=== PATIENT | male | born 1985 | race Caucasian/White ===

== ENCOUNTER 2021-02-17 16:09 | Emergency (ER) | payer OTHER, SELFPAY ==
[2021-02-17 16:15] VITALS: BP 130/80; PULSE 99; RESP 18; TEMP 37.1; O2SAT 100
--- NOTE | 2021-02-17 16:15 | ED.EXTPRO ---
HPI - Extremity Problem General Chief complaint: Skin/Abscess/Foreign Body Stated complaint: Knot on the back of left Leg Time Seen by Provider: 02/17/21 16:15 Source: patient and RN notes reviewed Mode of arrival: ambulatory Limitations: no limitations History of Present Illness HPI Narrative: 35-year-old male presents with concern for a painful bump on the back of his left leg. Reports it has been there for more than a month, started off small and has gotten bigger, more painful, more tender. Denies any drainage. Denies any fever, general malaise, body aches. MD Complaint: other (Abscess) Related Data Allergies Allergy/AdvReac Type Severity Reaction Status Date / Time No Known Allergies Allergy Verified 02/17/21 16:27 Review of Systems Review of Systems: CONSTITUTIONAL: Denies malaise, chills, sweats, or fever. SKIN: Reports painful, red bump on the back of his left leg MUSCULOSKELETAL: Denies musculoskeletal pain or myalgia. All systems reviewed & are unremarkable except as noted in HPI and below PMFSH Past Medical History Medical History ADHD, predominantly inattentive type Long-term current use of drug therapy for attention deficit hyperactivity disorder (ADHD) Mixed hyperlipidemia Prediabetes Surgical History Surgical History No history of previous surgery Family History Family History Father Diabetes mellitus Mother Diabetes mellitus Social History Social History Smoking packs per day: 0.5 Smoking cigarettes per day: 10.0 Years smoked: 20 Smoking pack-years: 10.00 Smoking status: Current every day smoker Tobacco type: cigarettes Second hand tobacco smoke exposure: No Alcohol intake: never Substance use: never 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 There is no relevant family history pertinent to the presenting complaint Exam Narrative: GENERAL: Well-appearing, well-nourished, and in no acute distress. HEAD: Normocephalic, atraumatic. EYES: PERRLA, conjunctivae clear, and EOMI. ENT: Mucous membranes moist. NECK: Supple. No lymphadenopathy CHEST: Clear to auscultation. No respiratory distress. HEART: Regular rate and rhythm. SKIN: Warm, dry. 3 cm raised erythematous fluctuant area noted to the back of the left thigh surrounded by 12cm of erythema and mild induration. NEURO: Alert and oriented x3. PSYCH: Normal mood and affect Course Course Emergency Course: Patient is aware of diagnosis, understands and agrees to treatment plan. Anticipatory guidance given. Patient agrees to follow-up as directed and is aware of reasons to seek care at the emergency department. Portions of this record may have been created with voice recognition software Vital Signs Vital signs: Reviewed. Pt has been instructed to follow up with his primary care provider within the next week regarding his elevated blood pressure today. Procedures Abscess I/D lower extremity: Date of Incision: 02/17/21 Time of Incision: 16:37 Side (if applicable): left Local Anesthetic: lidocaine 1% Technique: incised with #11 blade Amount of fluid expressed (mL): 6 Irrigation: Yes Packing used?: none I&D Results: Pus MDM - Extremity (Nontraumatic) MDM Narrative Medical decision making narrative: Verbal consent was obtained. The indication for the procedure was clinical suspicion for an abscess. The region was anesthetized with 1% lidocaine. The most fluctuant portion of the abscess was incised with an 11 blade scalpel. The abscess cavity of explored and evacuat
== END 2021-02-17 17:05 | disposition home or self-care (01) ==
PROVIDERS: Emergency Provider Nurse Practitioner
DX: L02.416 Cutaneous abscess of left lower limb (principal); F17.210 Nicotine dependence, cigarettes, uncomplicated; F90.9 Attention-deficit hyperactivity disorder, unspecified type; E78.2 Mixed hyperlipidemia; R73.03 Prediabetes
CPT/HCPCS: 10060; 87070; 87205; 99213; G0463

== ENCOUNTER 2022-02-27 09:40 | Emergency (ER) | payer OTHER, SELFPAY ==
--- NOTE | ~2022-02-27 | XR_ITS ---
EXAMINATION: XR chest 2V DATE: 02/27/2022 10:10 INDICATION: Tachycardia TECHNIQUE: PA and lateral views of the chest are obtained. COMPARISON: None available FINDINGS: The lungs are free of acute opacities. No pleural effusion or pneumothorax. The cardiomedia stinal silhouette is normal. The visualized bones and soft tissues are unremarkable. IMPRESSION: 1. No acute cardiopulmonary abnormality. Reviewed, dictated and finalized at location A.
--- NOTE | 2022-02-27 09:42 | ECG_ITS ---
Measurements Intervals [place] Rate: 111 P: 48 LA: 178 QRS: -37 QRSD: 97 T: 61 QT: 324 QTc: 442 Interpretive Statements SINUS TACHYCARDIA MARKED LEFT AXIS DEVIATION [QRS AXIS < -30] POSSIBLE RIGHT VENTRICULAR CONDUCTION DELAY [RSR (QR) IN V1/V2] ABNORMAL ECG NO PREVIOUS ECG AVAILABLE FOR COMPARISON Electronically Signed On 02-27-2022 12:07:32 CDT by Jose Evans M.D.
--- NOTE | 2022-02-27 09:42 | PC.NURSE ---
c/o high heart rate and light headed. this rn offered a wheelchair, pt refused. ambulatory with steady gait to ed room 9.
[2022-02-27 09:43] VITALS: BP 165/83; PULSE 113; RESP 22; TEMP 36.7; O2SAT 100
--- NOTE | 2022-02-27 09:43 | ED.ARRPALP ---
HPI - Arrhythmia/Palpitations General Chief Complaint: Arrhythmia/Palpitations Stated Complaint: high heart rate, light headed Time Seen by Provider: 02/27/22 09:42 History of Present Illness HPI narrative: 36-year-old male presents the emergency room for evaluation of tachycardia. Patient states that he was looking on his apple watch is that his heart rate was over 100. Patient is also complaining of intermittent chest pain and shortness of breath. Patient notes that he is a smoker. Denies any radiating chest pain. Denies any syncope or presyncopal events. Denies any nausea or vomiting. Patient denies any palpitations or edema. Patient does note that in the last couple visits to his doctor's office, his heart rate was elevated. Related Data Allergies Allergy/AdvReac Type Severity Reaction Status Date / Time No Known Allergies Allergy Verified 02/27/22 09:51 Review of Systems Review of Systems: CONSTITUTIONAL: Denies fever, chills, or sweats. EYES: Denies visual changes, redness, or discharge. ENT: Denies rhinorrhea, congestion, sore throat, or otalgia. CARDIOVASCULAR: Reports elevated heart rate, and chest pain RESPIRATORY: Reports shortness of breath GASTROINTESTINAL: Denies abdominal pain, nausea, vomiting, or diarrhea. GENITOURINARY: Denies dysuria or hematuria. SKIN: Denies rash or itching. MUSCULOSKELETAL: Denies back pain, joint pain, or myalgia. NEUROLOGIC: Denies headache, numbness, dizziness, or weakness. PSYCHIATRIC: Denies anxiety or depression. 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 HEAD: Normocephalic, atraumatic. EYES: Conjunctivae normal, PERRLA and EOMI. ENT: External nose normal, Nares clear, no rhinorrhea or epistaxis. Mucous membranes moist. Oropharynx without tonsillar hypertrophy exudate or other lesions. External ears normal, bilateral TMs normal bilaterally NECK: Supple. No meningeal signs. No adenopathy or masses. No carotid bruits or JVD CHEST: Clear to auscultation. No respiratory distress. No wheezes rales or rhonchi. No tenderness. HEART: Tachycardic and regular rhythm. No murmur heard. Normal peripheral pulses. ABDOMEN: Soft, nontender, nondistended, normal active bowel sounds. EXTREMITIES: Normal range of motion. No edema. No clubbing or cyanosis SKIN: Warm, dry, no rash. No noted wounds NEURO: No focal deficits. Alert and oriented x3. MAEW. CN's II-XI intact bilaterally, normal gait PSYCH: Cooperative. Normal mood and affect. MDM - Arrhythmia/Palpitations ECG Data EKG #1: ECG completion date: 02/27/22 ECG completion time: 09:55 EKG Interpretation: tachycardia, sinus rhythm, no ectopy, ST depression, normal QT and left axis Discharge Plan Discharge Clinical Impression: Tachycardia, TSH elevation Patient Disposition: Home, Self-Care Condition: Stable Instructio
[2022-02-27 09:58] LABS: Basophils Percent Auto 0.4 % (0.2-1.2); Eosinophils Absolute Auto 0.1 K/mm3 (0-0.3); Eosinophils Percent Auto 1.7 % (0-4.4); Hematocrit 45.2 % (42.0-52.0); Hemoglobin 14.7 g/dL (14.0-18.0); Immature Granulocyte Absolute 0.01 K/mm3 (0.00-0.031); Immature Granulocyte Percent A 0.1 % (0-0.5); Lymphocytes Absolute Auto 2.88 K/mm3 (0.9-3.2); Lymphocytes Percent Auto 38.8 % (18.3-44.2); Mean Corpuscular HGB Conc 32.5 g/dl (32-36); Mean Corpuscular Hemoglobin 29.7 pg (26-34); Mean Corpuscular Volume 91.3 fl (80-100); Mean Platelet Volume 10.1 fl (7.4-10.4); Monocytes Absolute Auto 0.8 K/mm3 (0.1-0.6); Monocytes Percent Auto 10.6 % (2.6-8.5); Neutrophils Absolute Auto 3.6 K/mm3 (1.3-6.7); Neutrophils Percent Auto 48.4 % (45.5-73.1); Platelet Count Result 313 k/mm3 (150-375); Red Blood Count 4.95 M/mm3 (4.6-6.20); Red Cell Distribution Width 11.5 % (11.5-14.5); White Blood Count 7.4 K/mm3 (4.5-10.0)
[2022-02-27] MEDS: SODIUM CHLORIDE 0.9% IV 1,000 ML 999 ML IV CONT (10:01)
[2022-02-27] MEDS: ASPIRIN 81 MG CHEWABLE TABLET 324 MG PO (10:01)
--- NOTE | 2022-02-27 10:08 | PC.NURSE ---
Pt to xray via transport at this time.
[2022-02-27 10:10] LABS: Alanine Aminotransferase 60 U/L (6-50); Albumin Level 4.1 g/dL (3.5-5.1); Alkaline Phosphatase 105 U/L (38-126); Anion Gap 9 mmol/L (8-16); Aspartate Amino Transferase 52 U/L (17-59); Bilirubin,Total 0.4 mg/dL (0.2-1.3); Blood Urea Nitrogen 10 mg/dL (9-20); Carbon Dioxide 24 mmol/L (22-30); Chloride 103 mmol/L (98-107); Estimated CRCL calculation 157 ml/min; Estimated Glomerular Filt Rate > 60; Glucose 121 mg/dL (65-110); Lipase 79 U/L (23-300); Potassium 4.4 mmol/L (3.4-5.0); Prothrombin Time 12.4 Seconds (11.1-14.7); Sodium 136 mmol/L (137-145)
[2022-02-27 10:11] LABS: Partial Thromboplastin Time 33.3 SECONDS (22.3-36.8)
[2022-02-27 10:20] VITALS: PULSE 100; RESP 21; O2SAT 97
[2022-02-27 10:21] LABS: Troponin I < 0.012 ng/mL (0.000-0.034)
[2022-02-27 10:28] LABS: Appearance Urine Clear (Clear); Bilirubin Urine Negative (Negative); Blood Urine Negative (Negative); Color Urine Yellow (Yellow); Glucose Urine UA Negative (Negative); Ketones Urine Negative (Negative); Leukocyte Esterase Ur Negative LEU/UL (Negative); Nitrate Urine Negative (Negative); Protein Urine Negative (Negative); Urobilinogen Urine 0.2 mg/dL (<2.0); pH Urine 6.5 (5.0-9.0)
[2022-02-27 10:30] VITALS: BP 127/67; PULSE 91; RESP 20; O2SAT 98
[2022-02-27 10:30] LABS: Add Urine Microscopic? NO
[2022-02-27 10:50] LABS: Amphetamine Screen Urine Positive (Negative); Barbiturate Screen Urine Negative (Negative); Benzodiazepines Screen Urine Negative (Negative); Cannabinoid Screen Urine Negative (Negative); Cocaine Screen Urine Negative (Negative); Methadone Screen Urine Negative (Negative); Opiate Screen Urine Negative (Negative); Phencyclidine Screen Urine Negative (Negative)
[2022-02-27 11:00] LABS: Thyroid Stimulating Hormone < 0.015 uIU/mL (0.465-4.680)
[2022-02-27 11:12] LABS: D Dimer 0.29 ug/mL (<0.48)
== END 2022-02-27 11:45 | disposition home or self-care (01) ==
PROVIDERS: Emergency Medicine; Emergency Provider Nurse Practitioner Family; PCP Family Medicine
DX: R00.0 Tachycardia, unspecified (principal); R94.6 Abnormal results of thyroid function studies; F17.210 Nicotine dependence, cigarettes, uncomplicated; R94.31 Abnormal electrocardiogram [ECG] [EKG]
CPT/HCPCS: 36415; 71046; 80053; 80307; 81003; 83690; 84443; 84484; 85025; 85380; 85610; 85730; 93005; 96360; 99284; A9270; J7030

== ENCOUNTER 2022-03-07 16:07 | Outpatient (CLI) | payer OTHER, SELFPAY ==
[2022-03-07 20:00] LABS: Free T4 Free Thyroxine 2.46 ng/mL (0.78-2.19)
[2022-03-07 20:45] LABS: Thyroid Stimulating Hormone < 0.015 uIU/mL (0.465-4.680)
[2022-03-10 04:06] LABS: Thyroid Peroxidase Antibodies 1 IU/mL (<9)
[2022-03-10 07:20] LABS: Triiodothyronine T3 Free 13.2 pg/mL (2.3-4.2)
[2022-03-10 17:36] LABS: Thyrotropin Receptor Antibody 11.42 IU/L (<=2.00)
== END 2022-03-07 16:08 | disposition home or self-care (01) ==
LOC: ANHGOSHLAB 16:09
PROVIDERS: PCP Family Medicine; Visit Provider Family Medicine
DX: R00.0 Tachycardia, unspecified (principal); R79.89 Other specified abnormal findings of blood chemistry; E07.9 Disorder of thyroid, unspecified
CPT/HCPCS: 36415; 83519; 84439; 84443; 84481; 86376

== ENCOUNTER 2022-03-29 08:36 | Outpatient (CLI) | payer OTHER, SELFPAY ==
--- NOTE | 2022-03-29 08:45 | ECHO_ITS ---
Patient Info Name: Bipin Castellanos Age: 36 years : 1985 Gender: Male Ht: 72 in Wt: 200 lbs BSA: 2.16 m2 HR: 106 bpm BP: 159 / 79 mmHg Technical Quality: Good Exam Date: 03/29/2022 9:10 AM Exam Location: [facility] Pul[facility] Patient Status: Outpatient Admit Date: 03/29/2022 Staff Ordering Physician: Jerzy Helm MD Recruitment Internship: Debbie Hart RDCS Attending Provider: Jerzy Helm MD Exam Type: CA echo doppler color flow Study Info Indications R01.1 - Cardiac murmur, unspecified Complete two-dimensional, color flow and Doppler transthoracic echocardiogram is performed. Summary 1. Complete two-dimensional, color flow and Doppler transthoracic echocardiogram is performed. 2. Left ventricular chamber dimension is normal. 3. Left ventricular systolic function is normal, estimated at 65-70%. 4. There is mildly increased left ventricular wall thickness. 5. The left ventricular diastolic function is grade I diastolic dysfunction. 6. Suspected patent foramen ovale visualized by 2D and color flow imaging with possible mild shunt. Left Ventricle Tissue doppler E/e' not performed. Left ventricular chamber dimension is normal. Left ventricular systolic function is normal, estimated at 65-70%. There is mildly increased left ventricular wall thickness. The left ventricular diastolic function is grade I diastolic dysfunction. Right Ventricle Right ventricular systolic function is normal and with normal TAPSE 2.3 cm. Right ventricular chamber dimension is normal. Left Atria Left atrial chamber dimension is normal. Right Atria Right atrial chamber dimension is normal. Atrial Septum Suspected patent foramen ovale visualized by 2D and color flow imaging with possible mild shunt. Aortic Valve The aortic valve is trileaflet. There is no aortic valve stenosis. There is no aortic valve regurgitation. Pulmonic Valve There is no pulmonic regurgitation. Mitral Valve There is no mitral valve stenosis. There is no mitral valve regurgitation. Tricuspid Valve There is no tricuspid valve regurgitation. Pericardium/Pleural There is no pericardial effusion. Inferior Vena Cava Normal inferior vena cava with >50% collapse upon inspiration consistent with normal right atrial pressure, 5 mmHg. Aorta The aortic root size at the sinus of Valsalva is normal. Left Ventricular Outflow Tract Name Value Normal LVOT 2D LVOT Diameter 2.1 cm LVOT Doppler LVOT Peak Gradient 7 mmHg LVOT Mean Gradient 4 mmHg LVOT VTI 20 cm LVOT VTI/AV VTI Ratio 0.8 LVOT Stroke Volume 70 ml LVOT CO 7.1 l/min LVOT CI 3.3 l/min/m2 Mitral Valve Name Value Normal MV Doppler
== END 2022-03-29 08:37 | disposition home or self-care (01) ==
PROVIDERS: PCP Family Medicine; Visit Provider Family Medicine
DX: R01.1 Cardiac murmur, unspecified (principal); R00.0 Tachycardia, unspecified
CPT/HCPCS: 93306

== ENCOUNTER 2022-04-02 14:19 | Emergency (ER) | payer OTHER, SELFPAY ==
--- NOTE | ~2022-04-02 | XR_ITS ---
EXAMINATION: XR chest 2V Exam Date/Time: 04/02/2022 15:10 CDT HISTORY: chest pain, SOB Comparison: 02/27/2022. RESULT: Lines, tubes, and devices: None. Lungs and pleura: Clear. Cardiomediastinal silhouette: Stable. Other: No acute osseous or upper abdominal finding. IMPRESSION: No acute cardiopulmonary process. Reviewed, dictated and finalized at location K.
[2022-04-02 14:20] VITALS: BP 156/64; PULSE 114; RESP 17; TEMP 36.6; O2SAT 99
--- NOTE | 2022-04-02 14:24 | ECG_ITS ---
Measurements Intervals [place] Rate: 101 P: 43 MA: 169 QRS: -11 QRSD: 96 T: 64 QT: 350 QTc: 454 Interpretive Statements SINUS TACHYCARDIA INCOMPLETE RIGHT BUNDLE BRANCH BLOCK BORDERLINE ECG COMPARED TO ECG 02/27/2022 09:48:29 NO SIGNIFICANT CHANGES Electronically Signed On 04-02-2022 16:55:26 CDT by Shyam Mosqueda D.O.
[2022-04-02 14:45] LABS: Basophils Absolute Auto 0.1 K/mm3 (0.0-0.1); Basophils Percent Auto 0.7 % (0.2-1.2); Eosinophils Absolute Auto 0.1 K/mm3 (0-0.3); Hematocrit 45.5 % (42.0-52.0); Hemoglobin 15.3 g/dL (14.0-18.0); Immature Granulocyte Absolute 0.01 K/mm3 (0.00-0.031); Immature Granulocyte Percent A 0.1 % (0-0.5); Lymphocytes Absolute Auto 2.42 K/mm3 (0.9-3.2); Lymphocytes Percent Auto 32.9 % (18.3-44.2); Mean Corpuscular HGB Conc 33.6 g/dl (32-36); Mean Corpuscular Hemoglobin 29.8 pg (26-34); Mean Corpuscular Volume 88.7 fl (80-100); Mean Platelet Volume 10.3 fl (7.4-10.4); Monocytes Absolute Auto 0.5 K/mm3 (0.1-0.6); Monocytes Percent Auto 6.3 % (2.6-8.5); Neutrophils Absolute Auto 4.3 K/mm3 (1.3-6.7); Platelet Count Result 329 k/mm3 (150-375); Red Blood Count 5.13 M/mm3 (4.6-6.20); White Blood Count 7.4 K/mm3 (4.5-10.0)
[2022-04-02 14:56] LABS: Alanine Aminotransferase 68 U/L (6-50); Albumin Level 4.3 g/dL (3.5-5.1); Alkaline Phosphatase 105 U/L (38-126); Anion Gap 11 mmol/L (8-16); Aspartate Amino Transferase 42 U/L (17-59); Bilirubin,Total 0.4 mg/dL (0.2-1.3); Blood Urea Nitrogen 9 mg/dL (9-20); Carbon Dioxide 23 mmol/L (22-30); Chloride 108 mmol/L (98-107); Estimated CRCL calculation 137 ml/min; Estimated Glomerular Filt Rate > 60; Glucose 122 mg/dL (65-110); Lipase 102 U/L (23-300); Potassium 3.7 mmol/L (3.4-5.0); Sodium 142 mmol/L (137-145)
[2022-04-02 14:57] LABS: INR 1.1; Prothrombin Time 13.5 Seconds (11.1-14.7)
[2022-04-02 14:58] LABS: Partial Thromboplastin Time 34.1 SECONDS (22.3-36.8)
[2022-04-02 15:07] LABS: Troponin I < 0.012 ng/mL (0.000-0.034)
--- NOTE | 2022-04-02 17:33 | ED.CHESTPAIN ---
HPI - Chest Pain General Chief Complaint: Chest Pain Stated Complaint: chest pain Time Seen by Provider: 04/02/22 17:25 History of Present Illness HPI narrative: Patient is a 36-year-old male here for evaluation of a uncomfortable sensation in his chest for the past 12 hours. Patient states it is a sharp stabbing pain and has been intermittent in nature ever since. It is associated with shortness of breath. The symptoms have been been going on for the past month. Patient was seen in the emergency department and his primary care doctor, was found to be hyperthyroid and was started on methimazole and metoprolol. Cardiac and pulmonary work-up was otherwise normal. He additionally had a cardiac echo that was normal. He has also experienced a cough over the past year. States he is a smoker, may be worse than usual. The chest pain was new which prompted his ED evaluation. No leg swelling, fevers, chills, abdominal pain, nausea or vomiting. Per chart review, patient is on Adderall 20 mg twice daily. Related Data Allergies Allergy/AdvReac Type Severity Reaction Status Date / Time No Known Allergies Allergy Verified 03/07/22 15:35 Review of Systems Review of Systems: Gen: Denies fevers or chills Eyes: Denies eye pain or visual change ENT: Denies congestion Respiratory: Reports shortness of breath and cough. CV: Reports chest pain GI: Denies abdominal pain nausea, emesis or diarrhea : denies burning, urgency, frequency or hematuria Musculoskeletal: Denies back pain or muscle pain Neuro: Denies numbness, tingling, weakness or focal weakness Skin: Denies rash Except as documented, all other systems reviewed and negative 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 Head: Normocephalic and atraumatic. EYES: PERRLA/EOMI, conjunctivae clear NOSE: No nasal drainage EARS: External ear normal in appearance THROAT: Oropharynx is clear. Mucous membranes are moist. NECK: Supple. No adenopathy, no masses. RESPIRATORY: Airway patent, respirations nonlabored. Clear to auscultation bilaterally, no rales, rhonchi, wheezing. CARDIOVASCULAR: Fast rate. Regular rhythm without murmurs, rubs, or gallops. ABDOMINAL: Normoactive bowel sounds. Soft, nontender, nondistended. No rebound tenderness or guarding. MUSCULOSKELETAL: Extremities are warm and well-perfused. Moves all extremities well. No edema. NEURO: Normal speech. No focal neurologic deficits. SKIN: Skin is warm and dry. No rashes. PSYCHIATRIC: Normal affect/mood. Course Vital Signs Vital signs: Vital Signs Temperature 97.9 F 04/02/22 14:20 Pulse Rate 114 H 04/02/22 14:20 Respiratory Rate 17 04/02/22 14:20 Blood Pressure 156/64 H 04/02/22 14:20 Pulse Oximetry 99 04/02/22 14:20 Oxygen Delivery Room Air 04/02/22 14:20 Temperature 97.9 F 04/02/22 14:20 Pulse Rate 114 H 04/02/22 14:
[2022-04-02 18:47] LABS: D Dimer 0.27 ug/mL (<0.48)
[2022-04-02 19:07] LABS: Thyroid Stimulating Hormone < 0.015 uIU/mL (0.465-4.680)
== END 2022-04-02 19:29 | disposition home or self-care (01) ==
PROVIDERS: Physician Assistant; Emergency Provider Emergency Medicine; PCP Family Medicine
DX: E05.90 Thyrotoxicosis, unspecified without thyrotoxic crisis or storm (principal); F90.0 Attention-deficit hyperactivity disorder, predominantly inattentive type; F17.210 Nicotine dependence, cigarettes, uncomplicated
CPT/HCPCS: 36415; 71046; 80053; 83690; 84436; 84443; 84484; 85025; 85380; 85610; 85730; 93005; 99284

== ENCOUNTER 2022-06-14 10:13 | Outpatient (CLI) | payer OTHER, SELFPAY ==
[2022-06-14 15:17] LABS: Alanine Aminotransferase 82 U/L (6-50); Albumin Level 4.7 g/dL (3.5-5.1); Alkaline Phosphatase 118 U/L (38-126); Anion Gap 8 mmol/L (8-16); Aspartate Amino Transferase 101 U/L (17-59); Bilirubin,Total 0.5 mg/dL (0.2-1.3); Blood Urea Nitrogen 11 mg/dL (9-20); Calcium 9.3 mg/dL (8.4-10.2); Carbon Dioxide 25 mmol/L (22-30); Chloride 103 mmol/L (98-107); Estimated Glomerular Filt Rate > 60; Glucose 86 mg/dL (65-110); Potassium 4.3 mmol/L (3.4-5.0); Sodium 136 mmol/L (137-145)
[2022-06-14 15:37] LABS: Free T4 Free Thyroxine 1.74 ng/mL (0.78-2.19)
[2022-06-14 15:48] LABS: Thyroid Stimulating Hormone < 0.015 uIU/mL (0.465-4.680)
[2022-06-20 13:02] LABS: Thyroid Stimulating Immunoglob 98 % baseline (<140)
== END 2022-06-14 10:14 | disposition home or self-care (01) ==
LOC: ANHWCLAB 10:14
PROVIDERS: PCP Family Medicine; Visit Provider Internal Medicine Endocrinology, Diabetes & Metabolism
DX: E05.90 Thyrotoxicosis, unspecified without thyrotoxic crisis or storm (principal); R74.01 Elevation of levels of liver transaminase levels
CPT/HCPCS: 36415; 80053; 84439; 84443; 84445

== ENCOUNTER 2022-09-28 12:55 | Outpatient (CLI) | payer OTHER, SELFPAY ==
--- NOTE | ~2022-09-28 | US_ITS ---
EXAMINATION: US soft tissue buttock LT DATE: 09/28/2022 13:33 INDICATION: Left buttock localized swelling. TECHNIQUE: Multiple grayscale and Doppler ultrasound images of the left buttock were obtained. COMPARISON: None FINDINGS: In the left buttock, there is a 6.0 x 6.1 x 3.1 cm hypoechoic subcutaneous mass with process engineering intern al foci of hyperechogenicity and small area of internal vascular flow. IMPRESSION: 1. 6.0 x 6.1 x 3.1 cm subcutaneous mass in left buttock. The different diagnosis includes hematoma, a bscess, and neoplasm. Reviewed, dictated and finalized at location A. IMPRESSION: 1. 6.0 x 6.1 x 3.1 cm subcutaneous mass in left buttock. The different diagnosi s includes hematoma, abscess, and neoplasm.
== END 2022-09-28 12:56 | disposition home or self-care (01) ==
PROVIDERS: PCP Family Medicine; Visit Provider Surgery
DX: R22.2 Localized swelling, mass and lump, trunk (principal)
CPT/HCPCS: 76705

== ENCOUNTER 2023-06-10 09:31 | Outpatient (CLI) | payer OTHER, SELFPAY ==
[2023-06-10 19:35] LABS: Free T4 Free Thyroxine 0.99 ng/mL (0.78-2.19)
[2023-06-13 05:51] LABS: Triiodothyronine T3 Free 3.7 pg/mL (2.3-4.2)
== END 2023-06-10 09:32 | disposition home or self-care (01) ==
LOC: ANHBWCLAB 09:33
PROVIDERS: Visit Provider Internal Medicine Endocrinology, Diabetes & Metabolism
DX: E04.9 Nontoxic goiter, unspecified (principal); E05.00 Thyrotoxicosis with diffuse goiter without thyrotoxic crisis or storm
CPT/HCPCS: 36415; 84439; 84443; 84481

== ENCOUNTER 2023-12-19 11:27 | Outpatient (CLI) | payer OTHER, SELFPAY ==
[2023-12-19 20:03] LABS: Hemoglobin 17.6 g/dL (14.0-18.0); Mean Corpuscular HGB Conc 33.2 g/dl (32-36); Mean Corpuscular Hemoglobin 31.2 pg (26-34); Mean Corpuscular Volume 93.8 fl (80-100); Mean Platelet Volume 11.5 fl (7.4-10.4); Platelet Count Result 337 k/mm3 (150-375); Red Blood Count 5.65 M/mm3 (4.6-6.20); Red Cell Distribution Width 11.8 % (11.5-14.5); White Blood Count 7.3 K/mm3 (4.5-10.0)
[2023-12-20 00:36] LABS: Alanine Aminotransferase 44 U/L (6-50); Albumin Level 5.1 g/dL (3.5-5.1); Alkaline Phosphatase 116 U/L (38-126); Anion Gap 12 mmol/L (4-12); Aspartate Amino Transferase 71 U/L (17-59); Bilirubin,Total 0.8 mg/dL (0.2-1.3); Blood Urea Nitrogen 9 mg/dL (9-20); Calcium 9.7 mg/dL (8.4-10.2); Carbon Dioxide 22 mmol/L (22-30); Chloride 107 mmol/L (98-107); Estimated Glomerular Filt Rate > 60; Potassium 4.7 mmol/L (3.4-5.0); Sodium 141 mmol/L (137-145)
[2023-12-20 02:43] LABS: Free T4 Free Thyroxine 1.01 ng/mL (0.78-2.19)
[2023-12-20 08:08] LABS: Glucose 56 mg/dL (65-110)
== END 2023-12-19 11:28 | disposition home or self-care (01) ==
LOC: ANHBWCLAB 11:28
PROVIDERS: PCP Family Medicine; Visit Provider Internal Medicine Endocrinology, Diabetes & Metabolism
DX: E05.00 Thyrotoxicosis with diffuse goiter without thyrotoxic crisis or storm (principal)
CPT/HCPCS: 36415; 80053; 84439; 84443; 85027

== ENCOUNTER 2024-01-18 08:02 | Emergency (ER) | payer OTHER, SELFPAY ==
[2024-01-18 08:10] VITALS: BP 166/92; PULSE 106; RESP 18; TEMP 37.3; O2SAT 100
--- NOTE | 2024-01-18 08:13 | ED.URI ---
HPI - URI/Sore Throat General Chief Complaint: Upper Respiratory Infection Stated Complaint: Sinus Pain/Neck Pain Time Seen by Provider: 01/18/24 08:15 Source: patient, RN notes reviewed and old records reviewed Mode of arrival: ambulatory Limitations: no limitations History of Present Illness HPI Narrative: 38 year old male presents to express care with complaints of right ear pain, drainage from right ear, decreased hearing,sinus congestion and drainage and also swelling to area in front of right ear and to gland in his right neck area. Patient reports also some discomfort to his left ear. Patient reports that he has been taking Ibuprofen, Tylenol and Sudafed for his symptoms without resolution. Patient admits to swimming in the past 3 to 4 days in pool. MD elicited complaint: other (right ear pain, drainage from ear, decreased hearing) Onset (ago): day(s) (3) Consistency: constant Pain scale (0-10): 7 Description of mucous: clear Able to tolerate fluids by mouth: Yes Treatments prior to arrival: acetaminophen, ibuprofen and other (Sudafed) Related Data Allergies Allergy/AdvReac Type Severity Reaction Status Date / Time No Known Allergies Allergy Verified 01/18/24 08:18 Review of Systems Review of Systems: CONSTITUTIONAL: Reports malaise, chills, sweats, or fever. EYES: Denies visual changes, redness, or discharge. ENT: Reports rhinorrhea, congestion, sinus pain, right otalgia originally now some to left ear also and no sore throat. CARDIOVASCULAR: Denies chest pain, palpitations, or edema. RESPIRATORY: Reports no cough.? Denies dyspnea. GASTROINTESTINAL: Denies abdominal pain, nausea, vomiting, diarrhea SKIN: Denies rash or itching. MUSCULOSKELETAL: Denies myalgia. NEUROLOGIC: Reports headache. 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 Smoking packs per day: 0.75 Smoking cigarettes per day: 15.0 Years smoked: 20 Smoking pack-years: 15.00 Smoking status: Current every day smoker Tobacco type: cigarettes Second hand tobacco smoke exposure: No Alcohol intake: former Alcohol use details: rarely Substance use: never Do You Feel Safe in your Home?: Yes Lack of Transportation: No Lack of Food: Never True Current Housing: I Have Housing Concerned About Future Housing: No Difficulty Paying Gas/Electric Bills: No Difficulty Paying for Meds: No Currently Unemployed: No Education: Bachelor's Degree Difficulty w/ Childcare or Family Care: No Living arrangements: with family Occupation/Education: occupation 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 There is no relevant family history pertinent to the presenting complaint Exam Narrative: GENERAL: Well-appearing, well-nourished, and in no acute distress. HEAD: Normocephalic EYES: PERRLA, conjunctivae clear ENT: Nares clear, turbinates edematous and erythematous, clear discharg
[2024-01-18 08:35] VITALS: BP 135/80
== END 2024-01-18 08:35 | disposition home or self-care (01) ==
PROVIDERS: Emergency Provider Registered Nurse; PCP Family Medicine
DX: H65.01 Acute serous otitis media, right ear (principal); H60.331 Swimmer's ear, right ear; F17.210 Nicotine dependence, cigarettes, uncomplicated; E05.00 Thyrotoxicosis with diffuse goiter without thyrotoxic crisis or storm; R01.1 Cardiac murmur, unspecified; E05.90 Thyrotoxicosis, unspecified without thyrotoxic crisis or storm
CPT/HCPCS: 99213; G0463

== ENCOUNTER 2024-06-18 06:42 | Outpatient (CLI) | payer OTHER, SELFPAY ==
[2024-06-18 19:51] LABS: Basophils Absolute Auto 0.1 K/mm3 (0.0-0.1); Basophils Percent Auto 0.8 % (0.2-1.2); Eosinophils Absolute Auto 0.1 K/mm3 (0-0.3); Hematocrit 55.7 % (42.0-52.0); Hemoglobin 18.2 g/dL (14.0-18.0); Immature Granulocyte Absolute 0.02 K/mm3 (0.00-0.031); Immature Granulocyte Percent A 0.3 % (0-0.5); Lymphocytes Absolute Auto 3.05 K/mm3 (0.9-3.2); Lymphocytes Percent Auto 42.8 % (18.3-44.2); Mean Corpuscular HGB Conc 32.7 g/dl (32-36); Mean Corpuscular Hemoglobin 30.4 pg (26-34); Mean Platelet Volume 10.6 fl (7.4-10.4); Monocytes Absolute Auto 0.6 K/mm3 (0.1-0.6); Monocytes Percent Auto 7.9 % (2.6-8.5); Neutrophils Absolute Auto 3.3 K/mm3 (1.3-6.7); Neutrophils Percent Auto 46.2 % (45.5-73.1); Platelet Count Result 355 k/mm3 (150-375); Red Blood Count 5.99 M/mm3 (4.6-6.20); Red Cell Distribution Width 11.8 % (11.5-14.5); White Blood Count 7.1 K/mm3 (4.5-10.0)
[2024-06-18 21:01] LABS: Alanine Aminotransferase 89 U/L (6-50); Albumin Level 4.7 g/dL (3.5-5.1); Alkaline Phosphatase 103 U/L (38-126); Anion Gap 9 mmol/L (4-12); Aspartate Amino Transferase 54 U/L (17-59); Bilirubin,Total 0.6 mg/dL (0.2-1.3); Blood Urea Nitrogen 10 mg/dL (9-20); Calcium 9.8 mg/dL (8.4-10.2); Carbon Dioxide 29 mmol/L (22-30); Chloride 101 mmol/L (98-107); Cholesterol 221 mg/dL (0-200); Estimated Glomerular Filt Rate > 60; Glucose 92 mg/dL (65-110); HDL Direct 36 mg/dL; Potassium 4.1 mmol/L (3.4-5.0); Sodium 139 mmol/L (137-145); Triglycerides 515 mg/dL (<150)
[2024-06-18 21:12] LABS: LDL Cholesterol Direct 112 mg/dL
[2024-06-18 21:17] LABS: Vitamin D 25 Hydroxy 25.3 ng/mL
[2024-06-18 21:19] LABS: Free T4 Free Thyroxine 1.09 ng/dL (0.78-2.19)
== END 2024-06-18 06:43 | disposition home or self-care (01) ==
LOC: ANHBWCLAB 06:45
PROVIDERS: PCP Family Medicine; Visit Provider Internal Medicine Endocrinology, Diabetes & Metabolism
DX: Z00.00 Encounter for general adult medical examination without abnormal findings (principal); E78.5 Hyperlipidemia, unspecified; E55.9 Vitamin D deficiency, unspecified; E53.8 Deficiency of other specified B group vitamins; E05.00 Thyrotoxicosis with diffuse goiter without thyrotoxic crisis or storm; R74.01 Elevation of levels of liver transaminase levels
CPT/HCPCS: 36415; 80053; 80061; 82306; 82607; 83519; 84439; 84443; 84445; 85025

== ENCOUNTER 2024-08-20 06:34 | Outpatient (CLI) | payer OTHER, SELFPAY ==
--- OUTSIDE RECORDS SUMMARY | 2024-08-20 06:38 | XMS_ITS | Clinical Summary ---
Author Organization [facility] Address [address] [place] [address] Care Team Providers Care Telecommunications Switch Technician Name Role Phone Rasheed Helm MD Primary Care Provider Allergies No known active allergies Medications ketorolac (TORADOL) 10 mg tablet Take 1 tablet (10 mg total) by mouth every 6 (six) hours as needed for pain 20 tablet 9 Active Additional Information Patient not taking.Reported on 04/18/2022 tamsulosin (FLOMAX) 0.4 mg extended release capsule Take 1 capsule (0.4 mg total) by mouth daily 5 capsule 9 Active Additional Information Patient not taking.Reported on 04/18/2022 tadalafiL (CIALIS) 20 mg tablet Take 20 mg by mouth daily as needed Active dextroamphetami ne-amphetamine (ADDERALL) 20 mg tablet 20 mg Active methIMAzole (TAPAZOLE) 5 mg tablet Take 5 mg by mouth daily 2 Active Active Problems Problem Noted Date Diagnosed Date Patent foramen ovale 04/18/2022 Strain of lumbar region 08/24/2016 Overview (10/18/2016): Lumbar strain Low back pain 08/15/2016 Overview (10/19/2016): Low back pain Current smoker 08/15/2016 Overview (10/19/2016): Smoker Surgical History Surgery Date Site/Laterality Comments FOOT SURGERY 07/15/1998 - 07/14/1999 HERNIA REPAIR Medical History Medical History Date Comments Chest pain Family History Medical History Relation Name Comments Diabetes Father Diabetes Mother Diabetes Other Family history of diabetes; Relation Name Status Comments Father Mother Other Social History Tobacco Use Types Packs/Day Years Used Date Smoking Tobacco: Every Day Smokeless Tobacco: Never Tobacco Cessation:Ready to Q uit: Not Asked; Counseling Given: Not Answered Sex and Gender Information Value Date Recorded Sex Assigned at Not on file 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 Gender Identity Male 04/18/2022 9:10 AM CDT Sexual Orientation Not on file Obstetrics History Last Filed Vital Signs Vital Sign Reading Time Taken Comments Blood Pressure 140/84 04/18/2022 9:22 AM CDT Pulse 99 04/18/2022 9:22 AM CDT Temperature 35.9 C (96.6 F) 01/27/2019 4:58 AM CDT Respiratory Rate 18 01/27/2019 4:58 AM CDT Oxygen Saturation 96% 04/18/2022 9:22 AM CDT Inhaled Oxygen Concentration - - Weight 92.3 kg (203 lb 6.4 oz) 04/18/2022 9:22 A M CDT Height 182.9 cm (6') 04/18/2022 9:22 AM CDT Body Mass Index 27.59 04/18/2022 9:22 AM CDT Plan of Treatment Health Maintenance Due Date Last Done Comments Depression Screening 1984 Hepatitis C Screening 1984 Pneumococcal vaccine <65 (1 of 2 - PCV) 1990 DTaP/Tdap/Td Vaccine (1 - Tdap) 1995 Varicella Vaccines (1 of 2 - 13+ 2-dose series) 1997 Hepatitis B Screening 2002 Regular Well Visit/Exam 18-64 2002 Influenza Vaccine (#1) 2024 HPV Vaccines Aged Out No longer eligi ble based on patient's age to complete this topic Insurance [facility] [employer] [address] [place] [id number] Care Teams Telecommunications Switch Technician Relationship Specialty Start Date End Date Rasheed Helm MD PCP - General Family Practice 04/18/22
--- OUTSIDE RECORDS SUMMARY | 2024-08-20 06:38 | XMS_ITS | Data Portability ---
Author Organization [place] - [facility] - [facility] [place] Address [address] [place] [address] Care Team Providers Care Value Analyst Name Role Phone RODERICK BHAKTA Primary Care Provider Assessment Encounter Date Assessment Date Assessment LastModified by Organization Details LastModified Time 07/21/2024 07/21/2024 Pt here with below diagnosis - pt here for evaluation for their condition, evaluation of their medication use, and discussion for alternative treatments. The documentation details a telehealth encounter with the patient on this date of service. Audio and video communications were used during this encounter to provide a rocc-pc-xexa interactive encounter. Components of this encounter are a culmination of visual and patient-assisted findings. [email or web address] Not available 07/21/2024 14:14:06 07/24/2024 07/24/2024 Pt being seen today for follow up visit. We discussed patients future use of MMJ. We discussed the risks and benefits. Pt understands that we will certify them, but the recommendation does not constitute a prescription for medical cannabis. The documentation details a telehealth encounter with the patient on this date of service. Audio and video communications were used during this encounter to provide a vyek-hq-vrju interactive encounter. Components of this encounter are a culmination of visual and patient-assisted findings. [email or web address] Not available 07/24/2024 15:49:16 Plan of Treatment Reminders Order Date Submit Date Provider Last Modified By Organization Details Last Modified Time Details Appointments None record ed. Lab None record ed. Referral None record ed. Procedures None record ed. Surgeries None record ed. Imaging None record ed. Medication Orders None record ed. Patient TargetsNo targets recorded. Patient Instructions Encounter Date Encounter Id Patient Instructions Last Modified By Organization Details Last Modified Time 07/21/2024 [id number] I have discussed the risks and benefits of Medical Marijuana. Pt understands I am not prescribing this medication. I am certifying that this patient has a condition that is recognized by the state as qualifying for medical marijuana and this recommendation does not constitute a prescription for medical cannabis. Pt understands that my physician written certification form does not guarantee Medical Marijuana certification nor does it endorse the patient as needing medical marijuana. Patient understands that Medical Marijuana is a drug that the federal government has classified cannabis as a Schedule I controlled substance. Schedule 1 substances are defined, in part, as having (1) a high potential for abuse; (2) no currently accepted medical use in treatment in the [place]; and (3) a lack of accepted Safety for use under medical supervision. Federal law prohibits the manufacture, distribution and possession of cannabis even in states, which have modified their state laws to treat cannabis as a medicine. Pt also agrees that me, and the [facility] Team are my treating physicians and that we are in charge of treating the patient's conditions and that the patient will make a good rodriguez effort to remain under my treatment plan and acknowledge there will be follow up visits from this date forward to monitor the patient's condition. Discussed risks and benefits of Medical Marijuana. I have spent a total of 35 mins discussing the patient's condition, pain/medical management of the patient given their debilitating condition, the risks and benefits of this medication, a history and physical, gathering old medical records to look at the disease processes being evaluated, and answering of all questions. [email or web address] Not available 07/21/2024 14:14:06 07/24/2024 [id number] I have discussed the risks and benefits of Medical Marijuana. Pt understands I am not prescribing this medication. I am certifying that this patient has a condition that is recognized by the state as qualifying for medical marijuana and this recommendation does not constitute a prescription for medical cannabis. Pt understands that my physician written certification form does not guarantee Medical Marijuana certification nor does it endorse the patient as needing medical marijuana. Patient understands that Medical Marijuana is a drug that the federal government has classified cannabis as a Schedule I controlled substance. Schedule 1 substances are defined, in part, as having (1) a high potential for abuse; (2) no currently accepted medical use in treatment in the [place]; and (3) a lack of accepted Safety for use under medical supervision. Federal law prohibits the manufacture, distribution and possession of cannabis even in states, which have modified their state laws to treat cannabis as a medicine. Pt also agrees that me, and the [facility] Care Team are my treating physicians and that we are in charge of treating the patient's conditions and that the patient will make a good rodriguez effort to remain under my treatment plan and acknowledge there will be follow up visits from this date forward to monitor the patient's condition. Discussed risks and benefits of Medical Marijuana. I have spent a total of 35 mins discussing the patient's condition, pain/medical management of the patient given their debilitating condition, the risks and benefits of this medication, a history and physical, gathering old medical records to look at the disease processes being evaluated, and answering of all questions. [email or web address] Not available 07/24/2024 15:49:16 Reason for Referral None Reported. Medical Equipment None Reported. Allergies No known drug allergies Medications Name Sig Start Date Stop Date Status Note LastModified by Organization Details LastModified Time trazodone 50 mg tablet TAKE 1 TABLET BY MOUTH EVERY DAY AT BEDTIME NEEDED FOR INSOMNIA active Not Available Not Available No t Available atorvastatin 10 mg tablet TAKE 1 TABLET BY MOUTH EVERY DAY AT BEDTIME active Not Available Not Available No t Available prednisone 20 mg tablet TAKE 1 TABLET BY MOUTH TWICE DAILY active Not Available Not Available No t Available fenofibrate micronized 200 mg capsule TAKE 1 CAPSULE BY MOUTH DAILY active Not Available Not Available Not Available tramadol 50 mg tablet TAKE 1 TABLET BY MOUTH EVERY 6 HOURS NEEDED FOR PAIN active Not Available Not Available No t Available ofloxacin 0.3 % ear drops INSTILL 5 DROPS TO RIGHT EAR TWICE DAILY FOR 10 DAYS active Not Available Not Available Not Available dextroamphet amine-amphet amine 20 mg tablet TAKE 1 TABLET BY MOUTH TWICE DAILY active Not Available Not Available No t Available metoprolol succinate ER 25 mg tablet,exten ded release 24 hr TAKE 1 TABLET BY MOUTH DAILY active Not Available Not Available Not Available methylpredni solone 4 mg tablets in a dose pack FOLLOW PACKAGE DIRECTIONS active Not Available Not Available N ot Available methimazole 10 mg tablet TAKE 1 TABLET BY MOUTH DAILY active Not Available Not Available Not Available amoxicillin 875 mg-potassium clavulanate 125 mg tablet TAKE 1 TABLET BY MOUTH EVERY 12 HOURS active Not Available Not Available No t Available cholecalcife rol (vitamin D3) 1,250 mcg (50,000 unit) capsule TAKE 1 CAPSULE BY MOUTH WEEKLY active Not Available Not Available No t Available Vitals None Recorded Social History None recorded. Functional Status None recorded. Mental Status None recorded. Family History Nothing Reported. Medical History No medical history recorded. Past Encounters Encounter ID Performer Location Encounter Start Date Encounter Closed Date Diagnosis/Indication Diagnosis SNOMED-CT Code Diagnosis ICD10 Code Diagnosis Note [id number] [facility] [address] [place] [address] 07/21/2024 14:10:07 07/21/2024 14:33:18 Chronic back pain 329996521 M54.9 Chronic pain [id number] G8 9.29 [id number] [facility] [address] [place] [address] 07/24/2024 15:40:36 07/24/2024 15:51:01 Chronic pain [id number] G89.29 Health Concerns Section Related Observation LastModified by Organization Detai ls LastModified Time None Recorded Concern Status LastModified by Organization Details LastModified Time None Recorded Advance Directives Directive None Recorded Payers Encounter Date Sequence Insurance Name Policy Number Policy Reis Covered Member ID Reis Member ID Guarantor Name 07/21/2024 1 [employer] (PPO) Bipin Coerver [id number] Bipin Coerver 07/24/2024 1 [employer] (PPO) Bipin Coerver [id number] [facility] Coerver Notes Date Note Type Note Provider Name and Address Organization Details Recorded Time 07/21/2024 text/html The patient woul d like to discuss medications, the disease, and how to handle it. Pt would also like to discuss alternative treatments to this condition. Pt was referred here for further evaluation and treatment if necessary. Patient has a diagnosis of qualifying condition - chronic back pain JAZIEL SPRINGER PA-C [address], [place], [address], [place] - [facility] 07/21/2024 14:17:00 07/24/2024 text/html Pt saw the Provider to discuss medications, the disease, and how to handle it. Also discussed alternative treatments to this condition. Pt was referred here for further evaluation and treatment if necessary. chronic pain Pt now presents for their 2nd visit to discuss the condition and develop a patient-provider relationship. We discussed the above and future use of medical cannabis. ROBSON Pritchett [address], [place], [address], [facility] - [facility] 07/24/2024 15:49:41
--- OUTSIDE RECORDS SUMMARY | 2024-08-20 06:38 | XMS_ITS | Referral Summary ---
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
[2024-08-20 20:28] LABS: Alanine Aminotransferase 55 U/L (6-50); Albumin Level 4.8 g/dL (3.5-5.1); Alkaline Phosphatase 86 U/L (38-126); Anion Gap 11 mmol/L (4-12); Aspartate Amino Transferase 80 U/L (17-59); Bilirubin,Total 0.6 mg/dL (0.2-1.3); Blood Urea Nitrogen 15 mg/dL (9-20); Calcium 9.6 mg/dL (8.4-10.2); Carbon Dioxide 27 mmol/L (22-30); Chloride 105 mmol/L (98-107); Estimated Glomerular Filt Rate > 60; Glucose 89 mg/dL (65-110); Potassium 5.1 mmol/L (3.4-5.0); Sodium 143 mmol/L (137-145)
[2024-08-20 21:06] LABS: Free T4 Free Thyroxine 1.04 ng/dL (0.78-2.19)
== END 2024-08-20 06:35 | disposition home or self-care (01) ==
LOC: ANHBWCLAB 06:36
PROVIDERS: PCP Family Medicine; Visit Provider Internal Medicine Endocrinology, Diabetes & Metabolism
DX: E05.90 Thyrotoxicosis, unspecified without thyrotoxic crisis or storm (principal); E05.00 Thyrotoxicosis with diffuse goiter without thyrotoxic crisis or storm; I10 Essential (primary) hypertension; R78.5 Finding of other psychotropic drug in blood; Z79.899 Other long term (current) drug therapy
CPT/HCPCS: 36415; 80053; 84439; 84443

== ENCOUNTER 2024-12-03 06:33 | Outpatient (CLI) | payer OTHER, SELFPAY ==
--- OUTSIDE RECORDS SUMMARY | 2024-12-03 06:36 | XMS_ITS | Clinical Summary ---
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 Gender Identity Male 04/18/2022 9:10 AM CDT [...] Depression Screening 1984 Hepatitis C Screening 1984 DTaP/Tdap/Td Vaccine (1 - Tdap) 1995 Varicella Vaccines (1 of 2 - 13+ 2-dose series) 1997 Hepatitis B Screening 2002 Regular Well Visit/Exam 18-64 2002 Pneumococcal vaccine <65 (1 of 2 - PCV) 2003 Influenza Vaccine (Season Ended) 2025 HPV Vaccines Aged Out No longer eligi ble based on patient's age to complete this topic Insurance [facility] H[facility]PPO Address: [place] [address] [address] [place] [phone] Care Teams Permit Coordinator Relationship Specialty Start Date End Date Rasheed Helm MD PCP - General Family Practice 04/18/22
--- OUTSIDE RECORDS SUMMARY | 2024-12-03 06:36 | XMS_ITS | Data Portability ---
Author Organization [place] - [facility] - [facility] [place] Address [address] [place] [address] Care Team Providers Care Guest Experience Manager Name Role Phone RODERICK BHAKTA Primary Care [...] used during this encounter to provide a rsbh-fu-zbyq interactive encounter. Components of this encounter are [...] used during this encounter to provide a ykww-yf-zysw interactive encounter. Components of this encounter are a culmination of visual and patient-assisted findings. [email or web address] Not available 07/24/2024 15:49:16 Plan of Treatment [...] By Organization Details Last Modified Time 07/21/2024 [id number] I have discussed the risks and benefits [...] Pt also agrees that me, and the [facility] Team are my treating physicians and that [...] [email or web address] Not available 07/21/2024 14:14:06 07/24/2024 [id number] I have discussed the risks and benefits [...] Pt also agrees that me, and the [facility] Team are my treating physicians and [...] SNOMED-CT Code Diagnosis ICD10 Code Diagnosis Note [id number] Jonathan Fuentes MD [facility] [address] [place] [address] 07/21/2024 14:10:07 07/21/2024 14:33:18 Chronic back pain 745119248 M54.9 Chronic pain 54441157 G8 9.29 [id number] [facility] [address] [place] [address] 07/24/2024 15:40:36 07/24/2024 15:51:01 Chronic pain [id number] G89.29 Health Concerns Section Related Observation LastModified by Organization Detai ls LastModified Time None Recorded Concern Status LastModified by Organization Details LastModified Time None Recorded Advance Directives Directive None Recorded Payers Insurance Date Sequence Insurance Name Policy Number Policy Reis Covered Member ID Reis Member ID Guarantor Name 07/28/2024 1 [facility] - [employer] MANAGEMENT (PPO) Bipin Coerver [id number] Bipin Coerver Notes Date Note Type Note Provider [...] - chronic back pain JAZIEL SPRINGER PA-C [address], [place], [address], [facility] 07/21/2024 14:17:00 07/24/2024 text/html Pt [...] use of medical cannabis. ROBSON Pritchett [address], [place], [address], [facility] 07/24/2024 15:49:41
--- OUTSIDE RECORDS SUMMARY | 2024-12-03 06:36 | XMS_ITS | Referral Summary ---
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
[2024-12-03 19:07] LABS: Cholesterol 177 mg/dL (0-200); HDL Direct 42 mg/dL; Triglycerides 70 mg/dL (<150)
[2024-12-03 19:18] LABS: LDL Cholesterol Direct 100 mg/dL
[2024-12-03 19:24] LABS: Free T4 Free Thyroxine 1.04 ng/dL (0.78-2.19)
== END 2024-12-03 06:34 | disposition home or self-care (01) ==
LOC: ANHBWCLAB 06:35
PROVIDERS: Internal Medicine Endocrinology, Diabetes & Metabolism; PCP Family Medicine; Visit Provider Family Medicine
DX: E05.00 Thyrotoxicosis with diffuse goiter without thyrotoxic crisis or storm (principal); E78.5 Hyperlipidemia, unspecified
CPT/HCPCS: 36415; 80061; 84439; 84443

== ENCOUNTER 2025-03-02 10:33 | Outpatient (CLI) | payer OTHER, SELFPAY ==
--- NOTE | ~2025-03-02 | US_ITS ---
US abdomen limited INDICATION: Fatty liver. PROCEDURE: Realtime right upper abdominal ultrasound. COMPARISON: No prior studies for comparison. FINDINGS: The pancreas is normal without focal mass or pancreatic ductal dilation. Liver echotexture is normal without focal mass or intrahepatic biliary dilatation. Liver is enlarged measuring 18.8 cm. There is normal directional flow in the portal vein. The gallbladder is normal without stones, gallbladder wall thickening or pericholecystic fluid. Common bile duct measures 3 mm. No sonographic Reich's sign. Right renal echotexture is normal. No hydronephrosis, contour deforming mass or renal stone. IMPRESSION: 1: Hepatomegaly. Reviewed, dictated and finalized at location A. IMPRESSION: 1: Hepatomegaly.
--- OUTSIDE RECORDS SUMMARY | 2025-03-02 11:03 | XMS_ITS | Continuity of Care Document ---
Author Name [facility] Organization [facility] Care Team Providers Care Field Manager Name Role Phone [facility] Unavailable Unavailable Allergies, Adverse Reactions, Alerts Combined list of allergies from Department of Defense and Veterans Affairs facilities. It does not include entries that were removed or entered in error. Substance Category Reaction Severity Reaction type Status Date Reported Comments Source No Known Allergies Drug allergy (disorder) active 10/31/2007 Darron Heller [facility] Procedures Combined list of: 1) Procedures from Department of Veterans Affairs facilities going back up to thelast 18 months, not all [place] non-surgical procedures are included; 2) All procedures from the Department of Defense facilities. Procedure Procedure Type Code Date Perfomer Comments Sourc e EDUCATIONAL SUPPLIES, SUCH A S BOOKS, TAPES, AND PAMPHLETS, FOR THE PATIENT'S EDUCATION AT COST TO PHYSICIAN OR OTHER QUALIFIED HEALTH TUBERCULOSIS SPECIALIST 04/27/2003 [facility] SCREENING TEST, PURE TONE, AIR ONLY 02/16/2003 [facility] SCREENING TEST OF VISUAL ACUITY, QUANTITATIVE, BILATERAL 02/16/2003 [facility] Social History Combined list of available smoking, tobacco, and other social history from Department of Defense and Veterans Affairs facilities. Social History Type Response Date Comment Sourc e This section is an empty social history section. [facility]
--- OUTSIDE RECORDS SUMMARY | 2025-03-02 11:04 | XMS_ITS | Clinical Summary ---
Author Organization [facility] Address [address] [place] [address] Care Team Providers Care Improvement Intern Name Role Phone Jose Sierra MD Primary Care Provide r Allergies No known active allergies Medications dextroamphetami ne-amphetamine (ADDERALL) 20 mg tablet Take 1 tablet (20 mg total) by mouth 2 (two) times a day 60 tablet 5 Active traZODone (DESYREL) 100 mg tablet Take 1 tablet (100 mg total) by mouth nightly as needed for sleep 100 tablet 3 5 Active dextroamphetami ne-amphetamine (ADDERALL) 20 mg tablet Take 1 tablet (20 mg total) by mouth 2 (two) times a day 02/13/20 25 Discontinu ed(Reorder ) traZODone (DESYREL) 50 mg tablet TAKE 1 TABLET BY MOUTH EVERY DAY AT BEDTIME NEEDED FOR INSOMNIA 02/13/20 25 Discontinu ed(Reorder ) Active Problems Problem Noted Date Diagnosed Date Hyperthyroidism 01/13/2025 Assessment & Plan (01/13/2025 3:56 PM CDT): Follow-up with Endocrinology Patient is not currently requiring any pharmacotherapy or additional treatment Attention deficit hyperactiv ity disorder (ADHD), predominantly inattentive type 01/13/2025 Assessment & Plan (01/13/2025 3:57 PM CDT): Controlled/stable, continue current management Continue Adderall Patient will show continued evidence of benefit from medication Medication will be used in a safe way to improve function Discussed policy of having all patients using controlled substances on a controlled substance agreement - patient is agreeable Also need urine drug screen today - order placed Elevated BP without diagnosis of hypertension Assessment & Plan (01/13/2025 3:55 PM CDT): Initial blood pressure reading today is elevated, but this could just be an anomaly as a new patient Will monitor closely and discuss additional measures for nonpharmacologic and pharmacologic intervention if blood pressure remains elevated Low testosterone 01/13/2025 Assessment & Plan (01/13/2025 3:56 PM CDT): [facility] If you would like me to take over his testosterone prescription in the future I would be willing to do so provided his dose remains stable with no complications Controlled substance agreement signed 01/13/2025 Overview (01/13/2025): 01/13/2025 Patent foramen ovale 04/18/2022 Assessment & Plan (01/13/2025 3:55 PM CDT): Unlikely to require any additional follow up We will plan on serial echocardiography every 5 years to monitor The patient and I discussed the primary risk of PFO which is that of paradoxical stroke, so he will focus on DVT prevention Resolved Problems Problem Noted Date Diagnosed Date Resolved Date Strain of lumbar region 08/24/2016 070 08/2024 Overview (10/18/2016): Lumbar strain Low back pain 08/15/2016 01/13/2025 Overview (10/19/2016): Low back pain Current smoker 08/15/2016 01/13/2025 Overview (10/19/2016): Smoker Encounters Date Type Department Care Team Description 02/01/[address] [facility] Health Information Management [address] [place] [id number] Scanning, Provider 01/15/2025 Results Follow-Up Family Care at [address] [place] [address] Jose Sierra MD Drugs of Abuse Screen, Urine with Reflex Confirmation, Amphetamine Confirmation, Urine 01/13/2025 3:50 PM CDT - 01/13/2025 11:59 PM CDT Hospital Encounter [address] [address] Attention deficit hyperactivity disorder (ADHD), predominantly inattentive type Discharge Disposition: Discharge to home or self care 01/13/2025 3:00 PM CDT Office Visit Family Care at [address] [address] Jose Sierra MD Attention deficit hyperactivity disorder (ADHD), predominantly inattentive type (Primary Dx); Patent foramen ovale; Hyperthyroidism; Elevated BP without diagnosis of hypertension; Low testosterone; Numbness and tingling of both lower extremities from Last 3 Months Immunizations Immunization Administration Dates Next Due Influenza, Unspecified 02/13/2024(Deferred: Beba ent Refused) Surgical History Surgery Date Site/Laterality Comments FOOT SURGERY 07/15/1998 - 07/14/1999 HERNIA REPAIR Medical History Medical History Date Comments Chest pain Strain of lumbar region 08/24/2016 Lumbar s train Current smoker 08/15/2016 Smoker Low back pain 08/15/2016 Low back pain Family History Medical History Relation Name Comments Diabetes Father Diabetes Mother Diabetes Other Family history of diabetes; Relation Name Status Comments Father Mother Other Social History Tobacco Use Types Packs/Day Years Used Date Smoking Tobacco: Former Cigarettes 1 28 0 1996 - 07/15/2024 Smokeless Tobacco: Never Tobacco Cessation:Counseling Given: Not Answered PHQ-2 Answer Date Recorded PHQ-2 Total Score (If total score is 3 or more points, staff should administer the PHQ-9) 0 01/13/2025 Sex and Gender Information Value Date Recorded Sex Assigned at Not on file 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 Gender Identity Male 04/18/2022 9:10 AM CDT Sexual Orientation Not on file Obstetrics History Last Filed Vital Signs Vital Sign Reading Time Taken Comments Blood Pressure 162/98 01/13/2025 2:59 PM CDT Pulse 91 01/13/2025 2:59 PM CDT Temperature 35.9 C (96.6 F) 01/27/2019 4:58 AM CDT Respiratory Rate 18 01/27/2019 4:58 AM CDT Oxygen Saturation 98% 01/13/2025 2:59 PM CDT Inhaled Oxygen Concentration - - Weight 90.3 kg (199 lb) 01/13/2025 2:59 PM CDT Height 188 cm (6' 2) 01/13/2025 2:59 PM CDT Body Mass Index 25.55 01/13/2025 2:59 PM CDT Plan of Treatment Health Maintenance Due Date Last Done Comments Hepatitis C Screening 1984 DTaP/Tdap/Td Vaccine (1 - Tdap) 1995 Varicella Vaccines (1 of 2 - 13+ 2-dose series) 1997 Hepatitis B Screening 2002 Regular Well Visit/Exam 18-64 2002 HPV Vaccines (1 - 3-dose SCD M series) 2011 Influenza Vaccine (#1) 2025 Depression Screening 01/13/2026 01/13/2025 Pneumococcal vaccine <65 Aged Out No longer eligible based on patient's age to complete this topic Procedures Procedure Name Priority Date/Time Associated Diagnosis Comments SCAN - LABS 02/01/2025 9:17 PM CDT AMPHETAMINE, URINE, CONFIRMATION Routine 01/13/2025 3:50 PM CDT Attention deficit hyperactivity disorder (ADHD), predominantly inattentive type DRUGS OF ABUSE SCREEN, URINE WITH REFLEX CONFIRMATION Routine 01/13/2025 3:50 PM CDT Attention deficit hyperactivity disorder (ADHD), predominantly inattentive type from Last 3 Months Results * SCAN - LABS (02/01/2025 9:17 PM CDT) us Provider Scanning Final Result * (ABNORMAL) Drugs of Abuse Screen, Urine with Reflex Confirmation (01/13/2025 3:50 PM CDT) Amphetamine, ur Screen Positive, presumptive (A) CutOff 500ng/mL Comment: Interpretive Data - Amphetamines: Samples containing greater than 500 ng/mL d-methamphetamine or other cross-reacting amphetamine compounds are reported as positive. Amphetamine immunoassays are subject to significant false positive rates due to cross-reactivity of non-amphetamine drugs. Confirmatory testing required for definitive results. Current Interpretive Data was last reviewed 2023. Barbiturates, ur Not Detected CutOff 200ng/mL [facility] Comment: Interpretive Data - Barbiturates: Samples containing greater than 200 ng/mL secobarbital or other cross-reacting barbiturate compounds are reported as positive. False positive and false negative results are possible. Confirmatory testing required for definitive results. Current Interpretive Data was last reviewed 2023. Benzodiazepines, ur Not Detected CutOff 100ng/mL [facility] Comment: Interpretive Data - Benzodiazepines: Samples containing greater than 100 ng/mL nordiazepam or other cross-reacting compounds are reported as positive. False positive and false negative results are possible. Confirmatory testing required for definitive results. Current Interpretive Data was last reviewed 2023. Cannabinoids, ur Screen Positive, presumptive (A) CutOff 50 ng/mL [facility] Comment: Interpretive Data - Cannabinoids: Samples containing greater than 50 ng/mL delta-9 THC -COOH or other cross- reacting compounds are reported as positive. False positive and false negative results are possible. Confirmatory testing required for definitive results. Current Interpretive Data was last reviewed 2023. Cocaine, ur Not Detected CutOff 150ng/mL [facility] Comment: Interpretive Data - Cocaine: Samples containing greater than 150 ng/mL benzoylecgonine or other cross- reacting compounds are reported as positive. False positive and false negative results are possible. Confirmatory testing required for definitive results. Current Interpretive Data was last reviewed 2023. Fentanyl, Ur Not Detected CutOff 5 ng/mL [facility] Comment: Interpretive Data - Fentanyl: Samples containing greater than 5 ng/mL norfentanyl, fentanyl, or other cross-reacting fentanyl compounds are reported as positive. False positive and false negative results are possible. Confirmatory testing required for definitive results. Current Interpretive Data was last reviewed 2023. Methadone, ur Not Detected CutOff 300ng/mL [facility] Comment: Interpretive Data - Methadone: Samples containing greater than 300 ng/mL d,l-methadone or other cross-reacting compounds are reported as positive. False positive and false negative results are possible. Confirmatory testing required for definitive results. Current Interpretive Data was last reviewed 2023. Opiates, ur Not Detected CutOff 300ng/mL [facility] Comment: Interpretive Data - Opiates: Samples containing greater than 300 ng/mL morphine or other cross-reacting compounds are reported as positive. False positive and false negative results are possible. Confirmatory testing required for definitive results. Current Interpretive Data was last reviewed 2023. Oxycodone, ur Not Detected CutOff 100ng/mL [facility] Comment: Interpretive Data - Oxycodone: Samples containing greater than 100 ng/mL oxycodone or other cross-reacting compounds are reported as positive. False positive and false negative results are possible. Confirmatory testing required for definitive results. Current Interpretive Data was last reviewed 2023. Phencyclidine, ur Not Detected CutOff 25 ng/mL [facility] Comment: Interpretive Data - Phencyclidine: Samples containing greater than 25 ng/mL phencyclidine or other cross-reacting compounds are reported as positive. False positive and false negative results are possible. Confirmatory testing required for definitive results. Current Interpretive Data was last reviewed 2023. Urine Creatinine 80 mg/dL [facility] Comment: Interpretive Data Urine Creatinine: < 10 mg/dL is extremely dilute = or > 10 but < 20 mg/dL is dilute = or > 20 mg/dL is normal Current Interpretive Data was last revised on 2017. Urine 01/13/2025 3:50 PM CDT 01/13/2025 7:42 PM CDT Narrative [facility] - 01/13/2025 8:48 PM CDT Drug of Abuse screening is performed by immunoassay for medical purposes only. This is not to be used for Pain Management purposes. If Detected, confirmation testing will be performed for Amphetamines, Cocaine, Fentanyl, Methadone, Opiates, Oxycodone or Phencyclidine. us Jose Sierra MD LAB URINE ORDERABLES Final Result [facility] [id number] Department [place] [address] * (ABNORMAL) Amphetamine Confirmation, Urine (01/13/2025 3:50 PM CDT) [facility] Signature Amphetamine Conf, Ur Confirmed Positive(A) CutOff 150ng/mL Comment:Testing performed by : [facility], [address] [place]., [address] Methamphetamine Conf, Ur Does Not Confirm CutOff 150ng/mL [facility] Comment:Testing performed by : [facility], [address] [place]., [address] MDA Conf, Ur Does Not Confirm CutOff 150ng/mL [facility] Comment:Testing performed by : [facility], [address] [place]., [address] MDMA Conf, Ur Does Not Confirm CutOff 50 ng/mL [facility] Comment:Testing performed by : [facility], [address] [place]., [address] MDEA Conf, Ur Does Not Confirm CutOff 150ng/mL [facility] Comment:Testing performed by : [facility], [address] [place]., [address] MBDB Conf, Ur Does Not Confirm CutOff 150ng/mL [facility] Comment: Interpretive Data This test detects the presence or absence of drug compounds using LC Tandem mass spectrometry. While this test is highly specific, false positive and false negative results may occur in very rare circumstances. Contact the laboratory for consultation, if needed. Performance characteristics were determined by the [facility] in a manner consistent with CLIA requirement and has not been cleared or approved by the U.S. Food and Drug Administration. Current interpretive data was last revised on 2020. Testing performed by: [facility], [address] [place]., [address] Urine 01/13/2025 3:50 PM CDT 01/14/2025 10:01 AM CDT us Jose Sierra MD LAB URINE ORDERABLES Final Result [facility] [id number] Department [place] [address] from Last 3 Months Insurance [employer] Care Teams Improvement Intern Relationship Specialty [place] [id number] [address] PCP - General Family Medicine 01/13/25
--- OUTSIDE RECORDS SUMMARY | 2025-03-02 11:04 | XMS_ITS | Encounter Summary ---
Author Organization [facility] Healthcare Address [address] [place] [address] Care Team Providers Care Process Operator Name Role Phone Jose Sierra MD Primary Care Provide r Encounter Details Date Type Department Care Team (Late st Contact Info) Description 01/15/2025 Results Follow-Up Family Care at [facility] [address] [address] [place] [id number] [place] [id number] Drugs of Abuse Screen, Urine with Reflex Confirmation, Amphetamine Confirmation, Urine Social History Tobacco Use Types Packs/Day Years Used Date Smoking Tobacco: Former Cigarettes 1 28 0 1996 - 07/15/2024 Smokeless Tobacco: Never PHQ-2 Answer Date Recorded PHQ-2 Total Score (If total score is 3 or more points, staff should administer the PHQ-9) 0 01/13/2025 Sex and Gender Information Value Date Recorded Sex Assigned at Not on file 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 documented in this encounter Plan of Treatment Not on file documented as of this encounter Visit Diagnoses Not on filedocumented in this encounter Care Teams Process Operator Relationship Specialty [place] [address] [address] PCP - General Family Medicine 01/13/25 documented as of this encounter
== END 2025-03-02 10:34 | disposition home or self-care (01) ==
PROVIDERS: Visit Provider Internal Medicine Endocrinology, Diabetes & Metabolism
DX: R16.0 Hepatomegaly, not elsewhere classified (principal); R74.01 Elevation of levels of liver transaminase levels
CPT/HCPCS: 76705